=== PATIENT | male | born 1945 | race Caucasian/White ===

== ENCOUNTER 2021-12-26 21:41 | Emergency (ER) | payer MEDICARE, OTHER ==
[~2021-12-26] VITALS: Ht 172.7 cm; Wt 95.3 kg
--- NOTE | 2021-12-26 21:53 | NUR ---
PATIENT [id number] FROM HOME C/O FEELING WEAK FOR THE PAST FEW WEEKS. PATIENT IS A/O X3, RR EVEN AND UNLABORED NO SOB NOTED, PT TAKEN TO ER BED 04. PT AFEBRILE, VSS. PT CONNECTED TO MONITORS.
[2021-12-26] MEDS ORDERED: IV NS 0.9% 1,000 ML BAG IV ONE (22:00)
--- NOTE | 2021-12-26 22:08 | NUR ---
EKG DONE AT BEDSIDE Addendum: 12/26/21 at 2214 by JANICE SEEN FORM RAISER JOSE AT BEDSIDE. Addendum: 12/26/21 at 2215 by JANICE EKG DONE AT BEDSIDE.
--- NOTE | 2021-12-26 22:10 | NUR ---
IV CANNULA G18 INSERTED ON RIGHT FA. BLOOD DRAWN AND SENT TO LAB
--- NOTE | 2021-12-26 22:10 | NUR ---
COVID SWAB DONE AND SENT TO LAB
--- NOTE | 2021-12-26 22:13 | NUR ---
IV FLUIDS STARTED
--- NOTE | 2021-12-26 22:15 | NUR ---
PATIENT STILL CANNOT GIVE URINE FOR EXAMINATION
--- NOTE | 2021-12-26 22:27 | NUR ---
CXR AT BEDSIDE DONE
[2021-12-26 22:30] LABS: BASOPHILS % (AUTO) 0.4 % (0.0-2.0); EOSINOPHILS % (AUTO) 0.3 % (0.0-6.0); HEMATOCRIT 34 % (39-51); HEMOGLOBIN 11.2 g/dL (13.5-17.5); LYMPHOCYTES # (AUTO) 1.9 K/uL (0.8-4.8); LYMPHOCYTES % (AUTO) 26.4 % (20.0-44.0); MEAN CORPUSCULAR HGB CONC 34 g/dl (31.0-36.0); MEAN CORPUSCULAR VOLUME 92 fL (80-96); MONOCYTES # (AUTO) 0.8 K/uL (0.1-1.30); MONOCYTES % (AUTO) 11.9 % (2.0-12.0); NEUTROPHILS # (AUTO) 4.3 K/uL (1.8-8.9); PLATELET COUNT (AUTO) 203 K/uL (150-450); RED BLOOD CELL COUNT(AUTO) 3.67 MIL/uL (4.5-6.0); WHITE BLOOD COUNT (AUTO) 7.1 K/uL (4.3-11.0)
[2021-12-26 22:40] LABS: CARBON DIOXIDE 29 mmol/L (21-32); CHLORIDE 93 mmol/L (98-107); CREATININE 0.9 mg/dL (0.6-1.3); GLUCOSE 185 mg/dL (74-106); POTASSIUM 4.1 mmol/L (3.5-5.1); SODIUM SERUM 129 mmol/L (136-145); UREA NITROGEN, BLOOD 12 mg/dL (7-18)
--- NOTE | 2021-12-26 22:41 | NUR ---
ACCUCHECK DONE SUGAR LEVEL 165
[2021-12-26 22:48] LABS: ALANINE AMINOTRANSFERASE 18 U/L (12-78); ALBUMIN 2.6 g/dL (3.4-5.0); ALKALINE PHOSPHATASE 76 U/L (46-116); ASPARTATE AMINOTRANSFERASE 21 U/L (15-37); BILIRUBIN,DIRECT 0.2 mg/dL (0.0-0.2); BILIRUBIN,TOTAL 0.5 mg/dL (0.2-1.0); TOTAL PROTEIN, SERUM 8.3 g/dL (6.4-8.2)
--- NOTE | 2021-12-26 23:30 | NUR ---
PATIENT OFFERED URINAL BUT CANNOT PASS OUT URINE.
--- NOTE | 2021-12-27 00:31 | NUR ---
URINE SPECIMEN SENT TO LAB
[2021-12-27 01:00] LABS: BILIRUBIN,URINE NEGATIVE (NEGATIVE); COLOR,URINE YELLOW (YELLOW); LEUKOCYTE ESTERASE ,URINE NEGATIVE (NEGATIVE); NITRITE, URINE NEGATIVE (NEGATIVE); PROTEIN,URINE 100 mg/dl (NEGATIVE); UGLUCOSE NEGATIVE (NEGATIVE); UROBILINOGEN,URINE 0.2 EU/dL (0.2)
--- NOTE | 2021-12-27 01:22 | NUR ---
Matthew koenig in [facility] - 12/27/21 at 0122 by JT Patient discharged to home in stable condition. Written and verbal after care instructions given. Patient verbalizes understanding of instruction.
--- NOTE | 2021-12-27 01:59 | NUR ---
Patient discharged to home in stable condition. Written and verbal after care instructions given. Patient verbalizes understanding of instruction.
--- NOTE | 2021-12-27 01:59 | NUR ---
IV CANNULA REMOVED.
[2021-12-27 02:00] VITALS: BP 137/76
[2021-12-27 08:00] LABS: BACTERIA,URINE Few /HPF (None Seen); SQUAMOUS EPITHELIAL CELL,UR Rare /HPF (None Seen); WBC,URINE 0-2 /HPF (0-3)
== END 2021-12-27 02:00 | disposition home or self-care (01) ==
LOC: ER 21:46
DX: R53.1 Weakness (principal); E87.1 Hypo-osmolality and hyponatremia; I10 Essential (primary) hypertension; I25.2 Old myocardial infarction; I25.10 Atherosclerotic heart disease of native coronary artery without angina pectoris; Z95.5 Presence of coronary angioplasty implant and graft; Z87.440 Personal history of urinary (tract) infections; E11.65 Type 2 diabetes mellitus with hyperglycemia; Z20.822 Contact with and (suspected) exposure to COVID-19
CPT/HCPCS: 99285; 96360; 71045; 87426; 93005; 84145; 85025; 80048; 87077; 87040 ×2; 83605; 80076; 87186; 36415; 84484; 85730; 82962; 87086; 81001; J7030; C9803